=== PATIENT | male | born 1990 | race Caucasian/White ===

== ENCOUNTER → 2017-05-11 | Emergency (ER) | payer OTHER ==
[~2017-05-11] VITALS: Ht 165.1 cm; Wt 58.5 kg
== END | disposition home or self-care (01) ==
LOC: ER 10:47
DX: J06.9 Acute upper respiratory infection, unspecified (principal)

== ENCOUNTER 2017-10-05 15:15 | Emergency (ER) | payer OTHER ==
[~2017-10-05] VITALS: Ht 165.1 cm; Wt 63.5 kg
== END 2017-10-05 19:17 | disposition home or self-care (01) ==
LOC: ER 15:15
DX: B34.9 Viral infection, unspecified (principal)